=== PATIENT | male | born 1945 | race Caucasian/White ===

== ENCOUNTER → 2023-07-06 | Outpatient (CLI) | payer MEDICARE, SELFPAY ==
--- NOTE | 2023-07-06 10:48 | NEURO_ITS ---
NCS and/or EMG Patient Report Ordering Doctor: Angelica Carvajal DATE OF SERVICE: 07/06/23 Clinical Summary: 77 year old male patient presenting with complaints of tightness, aching, and tingling in both feet. This EMG/NCS was performed to evaluate for peripheral polyneuropathy and lumbosacral radiculopathy. Nerve Conduction Studies Summary: The left superficial peroneal SNAP amplitude was reduced. The right peroneal-EDB CMAP amplitude was reduced when stimulated at the fibular head. The right tibial-AH CMAP amplitude was reduced distally. Needle Examination Summary: Needle examination of select muscles of the bilateral lower extremities was nor mal. Impression: There is no definite electrodiagnostic evidence of a large-fiber peripheral polyneuropathy. There is no electrodiagnostic evidence of a right/left lumbosacral radiculopathy. Reduced amplitudes in both sensory and motor responses can be seen in the setting of distal lower extremity edema (as seen in this patient), which can hamper nerve conductions. Multi Select Codes Neurology Neurology Interp Codes: 16338-02 Musc test done w/n test comp (interp) (2) and 40712-61 Nrv cndj test 7-8 studies (interp)
== END | disposition home or self-care (01) ==
PROVIDERS: PCP Internal Medicine; Referring Provider Chiropractor; Visit Provider Chiropractor
DX: G58.8 Other specified mononeuropathies (principal)
CPT/HCPCS: 95886; 95910